=== PATIENT | male | born 1990 | race Caucasian/White ===

== ENCOUNTER 2022-03-26 16:49 | Emergency (ER) | payer MEDICAID ==
[~2022-03-26] VITALS: Ht 180.3 cm; Wt 83.9 kg
[2022-03-26 16:49] VITALS: BP 118/66
[2022-03-26] MEDS: KETOROLAC 60 MG/2 ML VIAL IM ONE (17:38)
[2022-03-26] MEDS: MORPHINE SULFATE 4 MG/ML SYR IM ONE (18:40)
[2022-03-26] MEDS: diphenhydrAMINE 50 MG CAP PO ONE (18:43)
[2022-03-26] MEDS ORDERED: IBUP-2213 PO (19:18)
[2022-03-26] MEDS ORDERED: DIPH25TA53 PO (19:18)
[2022-03-26] MEDS ORDERED: ACET-8386 PO (19:18)
[2022-03-26] MEDS ORDERED: PRED20TA5 PO (19:18)
[2022-03-26 19:34] VITALS: BP 118/66
== END 2022-03-26 19:36 | disposition home or self-care (01) ==
LOC: MED 16:49
DX: L03.012 Cellulitis of left finger (principal); R21 Rash and other nonspecific skin eruption; J45.909 Unspecified asthma, uncomplicated; F12.90 Cannabis use, unspecified, uncomplicated
CPT/HCPCS: 96372; 99284; J1885; J2270; Q0163